=== PATIENT | male | born 1970 | race Caucasian/White ===

== ENCOUNTER 2024-03-06 00:46 | Emergency (ER) | payer SELFPAY ==
[2024-03-06 00:57] VITALS: BP 127/81; PULSE 87; RESP 16; TEMP 36.6; O2SAT 97; BMI 23.1
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
--- NOTE | 2024-03-06 01:39 | PC.NURSE ---
patient to CT
[2024-03-06] MEDS: ACETAMINOPHEN 500MG TAB 1000 MG PO (01:55)
[2024-03-06] MEDS: NICOTINE 21MG/24HR PATCH 21 MG TD (01:55)
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
[2024-03-06 02:13] VITALS: BP 100/64; PULSE 97; O2SAT 98
--- NOTE | 2024-03-06 03:15 | PC.NURSE ---
patient sleeping, call light within reach
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
[2024-03-06 06:53] VITALS: BP 110/80; PULSE 95; RESP 18; TEMP 36.6; O2SAT 96
== END 2024-03-06 06:55 | disposition home or self-care (01) ==
PROVIDERS: Emergency Provider Emergency Medicine
DX: S01.01XA Laceration without foreign body of scalp, initial encounter (principal); F17.210 Nicotine dependence, cigarettes, uncomplicated; F10.921 Alcohol use, unspecified with intoxication delirium; M25.511 Pain in right shoulder; M25.561 Pain in right knee; M25.551 Pain in right hip; Y04.8XXA Assault by other bodily force, initial encounter
CPT/HCPCS: 12001; 70450; 71045; 72125; 73030; 73502; 73552; 73562; 99285